=== PATIENT | female | born 1930 | race Caucasian/White ===

== ENCOUNTER 2016-09-30 08:52 | Day surgery (SDC) | payer OTHER ==
--- NOTE | ~2016-09-30 | OP ---
Record Of Operation [facility] [address] [place]. [address] NAME: SILAS CULP : 34 STATUS : REG [facility] PAT#: [id number] AGE: 86 ADM/REG DATE : 09/30/16 MR#: [id number] REPORT SERV DATE: 09/30/16 DICTATED BY: BOBBY MENDIOLA III DATE: 09/30/16 REPORT STATUS : Draft TRANSCRIBED BY: MODL DATE: 09/30/16 DATE OF PROCEDURE: 09/30/2016 PREOPERATIVE DIAGNOSIS: Abnormal bladder CT. POSTOPERATIVE DIAGNOSES: 1. Trabeculated bladder. 2. Multiple tiny bladder stones. PROCEDURE: Cystoscopy with bladder irrigation and bilateral retrograde pyelograms. SURGEON: Bobby Mendiola M.D. ANESTHESIA: MAC. INDICATION: Ms. Culp is an 86-year-old white female with multiple medical problems. A CT of the abdomen and pelvis reveals some hyperdense material in the bladder. Consent is obtained for cystoscopy and bilateral retrograde pyelograms. DESCRIPTION OF PROCEDURE: After consent was obtained, the patient was identified. She was taken to the OR and placed in the lithotomy position. She was prepped and draped in usual fashion. MAC anesthesia was administered. An 18-Wolof cystoscope was inserted, and the bladder was inspected. There were multiple tiny bladder stones. The bladder was heavily trabeculated consistent with urinary retention. A cone-tipped ureteral catheter was then flushed and bilateral retrograde pyelograms were obtained. The left appeared normal. 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 The Bertha evacuator was then used to evacuate the stones from the bladder. The bladder was then drained. The scope removed. The patient was taken to the recovery area in stable condition. PH/MODL Bobby Mendiola III, M.D. / [id number] CC: David Painter III, M.D.
[~2016-09-30 08:52] MED LIST: AMIT100 PO; ASA5GR PO; ASABAYER PO; ATEN100 PO; ATEN50 PO; CEREFOLINNAC PO; COD30 PO; HCTZ25B PO; MAX25 PO; METANX PO; NEUR100 PO; NORV25 PO; NORV5 PO; OTC COUGH MEDICATION; PRILOSEC OTC20 MG PO; T PO
[2016-09-30 09:32] LABS: HEMATOCRIT 38.5 % (36.0-48.0); HEMOGLOBIN 11.9 g/dL (12.0-16.0)
[2016-09-30 09:45] LABS: BUN (BLOOD UREA NITROGEN) 23 MG/DL (6-23); CALCIUM, SERUM 10.4 MG/DL (8.5-10.4); CHLORIDE, SERUM 105 MMOL/L (96-112); CO2 (CARBON DIOXIDE) 34 MMOL/L (24-34); CREATININE 0.64 MG/DL (0.55-1.02); GFR AFRICAN AMERICAN 95 ML/MIN (>=60); GFR NON AFRICAN AMERICAN 82 ML/MIN (>=60); GLUCOSE, SERUM 101 MG/DL (60-99); POTASSIUM, SERUM 3.4 MMOL/L (3.5-5.3); SODIUM, SERUM 145 MMOL/L (135-148)
== END 2016-09-30 18:32 | disposition home or self-care (01) ==
LOC: SDC 08:52
PROVIDERS: Urology
PROC: 0TCB8ZZ Extirpation of Matter from Bladder, Via Natural or Artificial Opening Endoscopic (ICD-10-PCS; principal; 2016-09-30 10:15)
DX: N21.0 Calculus in bladder (principal); N32.89 Other specified disorders of bladder; F03.90 Unspecified dementia, unspecified severity, without behavioral disturbance, psychotic disturbance, mood disturbance, and anxiety; G62.9 Polyneuropathy, unspecified; I10 Essential (primary) hypertension; J44.9 Chronic obstructive pulmonary disease, unspecified; K21.9 Gastro-esophageal reflux disease without esophagitis; F32.9 Major depressive disorder, single episode, unspecified; Z86.73 Personal history of transient ischemic attack (TIA), and cerebral infarction without residual deficits; Z98.41 Cataract extraction status, right eye; Z98.42 Cataract extraction status, left eye; Z96.1 Presence of intraocular lens; Z79.82 Long term (current) use of aspirin; Z79.899 Other long term (current) drug therapy
CPT/HCPCS: 74420; 80048; 85014; 85018; 87077; 87086; 87186; 93005; J1956; J2370; Q9967